=== PATIENT | male | born 1970 | race Caucasian/White ===

== ENCOUNTER → 2016-09-21 | Outpatient (CLI) | payer MEDICARE, BC ==
--- NOTE | 2016-09-21 12:15 | EST ---
DATE OF SERVICE: 09/21/2016 AGE: 46Y SEX: M HT: 63" WT: 210 lbs. Protocol Rajesh: X Other: Stage: III Dur. of Exercise: 6 minutes *Heart Rate Blood Pressure *Rest: 60 Rest: 156/97 * *Max. Achieved: 114 Maximum BP: 180/98 85% PMHR: 146 100% PMHR: 172 *METS: 6.7 INDICATIONS: Chest pain. MEDICATIONS: Mr. Garcia is a 46-year-old gentleman being evaluated for symptoms of chest pain. The patient has a history of hypertension and hypercholesterolemia. Baseline EKG showed sinus rhythm with normal DE interval and QRS duration. Blood pressure at rest is 156/97 with a pulse rate of 60. Patient walked on the Rajesh protocol for about 6 minutes achieving a maximum heart rate of 114 with a blood pressure of 180/98. EKGs taken during and after the exercise did not reveal any significant changes from the baseline. FINAL IMPRESSION: 1. Inconclusive stress test as patient did not achieve 85% of predicted heart rate. 2. The test was stopped because of back pain. 3. Patient did not experience any chest pain. 4. No arrhythmias were detected.
== END | disposition home or self-care (01) ==
LOC: RADNMMAIN 10:47
PROVIDERS: ATTEND Family Medicine
DX: R07.9 Chest pain, unspecified (principal)
CPT/HCPCS: 93017

== ENCOUNTER → 2017-01-09 | Outpatient (CLI) | payer MEDICARE, BC ==
--- NOTE | 2017-01-09 13:10 | CT ---
EXAMINATION TYPE: CT foot LT wo con, CT foot RT wo con DATE OF EXAM: 01/09/2017 12:35 PM COMPARISON: NONE HISTORY: fx CT DLP: 312 mGycm Automated exposure control for dose reduction was used. FINDINGS: There is a comminuted fracture of the base of the right first metatarsal. Much of the metat arsals displaced cranially by approximately 3 cm. There is some overlap between the metatarsal head a nd the medial cuneiform There appears to be a tiny chip fracture off the posterior malleolus which is minimally displaced. There is an Achilles spur arising from the calcaneus. There are degenerative changes in the right first MTP joint. On the left, there is a similar appearance. There is a comminuted intra-articular fracture of the fir st tarsometatarsal joint. There are 3 fragments. There is a distal second metatarsal fracture which i s mildly angulated there is an undisplaced fracture of the proximal second metatarsal. There does not appear to be widening of the Lisfranc joint. Correlation with plain radiographs would BE suggested. There is minimal degenerative change in the left first MTP joint. There is a small Achilles spur pres ent. IMPRESSION: BILATERAL FOOT FRACTURES DESCRIBED.
== END | disposition home or self-care (01) ==
LOC: RADCTMAIN 12:02
PROVIDERS: ATTEND Orthopaedic Surgery Sports Medicine
DX: S92.311A Displaced fracture of first metatarsal bone, right foot, initial encounter for closed fracture (principal); S92.322A Displaced fracture of second metatarsal bone, left foot, initial encounter for closed fracture; S92.312A Displaced fracture of first metatarsal bone, left foot, initial encounter for closed fracture

== ENCOUNTER 2017-01-16 08:42 | Inpatient (IN) | payer MEDICARE, BC ==
[2017-01-11 09:43] VITALS: BMI 40.7
[~2017-01-16 08:42] MED LIST: FAMOTIDINE 20 MG/2 ML VIAL IV PRN; HYDROmorphone 1 MG/ML 1 ML SYRINGE IVP PRN; MIDAZOLAM 2 MG/2 ML VIAL IV PRN; ceFAZolin 2 GM in SODIUM CHLORIDE 0.9% 100 ML IVPB ONE
[2017-01-16] MEDS ORDERED: LIDOCAINE 1% 20 ML VIAL (10MG/ML) FOR IV START INTRADERMA ONE (11:11)
[2017-01-16] MEDS: LACTATED RINGERS 1,000 ML IV SCH ×3 (11:11→21:50)
[2017-01-16] MEDS ORDERED: DEXAMETHASONE SOD PHOS (MDV) 100 MG/10 ML VIAL IVP ONE (11:16)
[2017-01-16] MEDS ORDERED: ONDANSETRON 4 MG/2 ML VIAL IVP ONE (11:17)
[2017-01-16] MEDS ORDERED: fentaNYL (PF) 50 MCG/ML 2 ML AMP ONE (11:43)
[2017-01-16] MEDS ORDERED: HYDROmorphone (PF) 1 MG/ML ONE (11:43)
[2017-01-16] MEDS ORDERED: ePHEDrine 50 MG/ML 1 ML AMP ONE (11:43)
[2017-01-16] MEDS ORDERED: PROPOFOL 10 MG/ML 20 ML VIAL IV ONE (11:43)
[2017-01-16] MEDS ORDERED: LIDOCAINE 1% INJ 10MG/ML (20 ML MDV) ONE (11:43)
[2017-01-16] MEDS ORDERED: KETAMINE 10 MG/ML 20 ML VIAL ONE (11:43)
[2017-01-16] MEDS ORDERED: MIDAZOLAM 2 MG/2 ML VIAL ONE (11:43)
[2017-01-16] MEDS ORDERED: LACTATED RINGERS 1,000 ML IV ONE ×2 (12:30)
--- NOTE | 2017-01-16 14:37 | XR ---
EXAMINATION TYPE: XR foot complete bilateral DATE OF EXAM: 01/16/2017 COMPARISON: NONE HISTORY: Bilateral feet, open reduction internal fixation TECHNIQUE: 47 seconds of fluoroscopy time Images: 11 IMPRESSION: 1. Documentation of fluoroscopy
--- NOTE | 2017-01-16 14:41 | FL ---
EXAMINATION TYPE: FL guidance operating room DATE OF EXAM: 01/16/2017 CLINICAL HISTORY: Bilateral foot fractures TECHNIQUE: Fluoroscopy. COMPARISON: None. FINDINGS: Fluoroscopic guidance was provided during open reduction internal fixation procedure perfo rmed by Dr. Mata on both feet. A total of 47 seconds of fluoroscopic time was utilized during th e procedure. IMPRESSION: As Above.
[2017-01-16] MEDS ORDERED: TEMAZEPAM 15 MG CAP PO PRN (15:06)
[2017-01-16] MEDS ORDERED: HYDROmorphone 1 MG/ML 1 ML SYRINGE IVP PRN ×2 (15:06)
[2017-01-16] MEDS ORDERED: ONDANSETRON 4 MG/2 ML VIAL IVP PRN (15:06)
[2017-01-16] MEDS ORDERED: PROCHLORPERAZINE SUPPOSITORY 25 MG SUPP RECTAL PRN (15:06)
[2017-01-16] MEDS ORDERED: diphenhydrAMINE 25 MG CAP PO PRN (15:06)
[2017-01-16] MEDS ORDERED: SENNOSIDES-DOCUSATE SODIUM 1 EACH TAB PO PRN (15:06)
[2017-01-16] MEDS ORDERED: oxyCODONE-APAP 10-325MG 1 EACH TAB PO PRN (15:10)
[2017-01-16] MEDS ORDERED: LIDOCAINE 2%-EPI 1:100,000 20 ML VIAL INTRAARTIC ONE (15:53)
[2017-01-16] MEDS ORDERED: ROPIVACAINE 5 MG/ML 30 ML VIAL MISCELLANE ONE (15:54)
--- NOTE | 2017-01-16 16:07 | P.ONQ ---
Anesthesiology Proc Note - PNB - Peripheral Nerve Block Performed Left Popliteal Single Time Out Performed: Yes Indication: Acute Post-Operative Pain, Analgesia Specifically requested for management of pain by DrIker: Prince Mata Sedation Type: Awake Preparation: Sterile Prep Catheter: None Needle Size: 50mm (2") Needle Gauge: Other (see comment) (22) Technique: Ultrasound Injectate: Other (see comment) (10cc 0.5% ropivicaine + 10cc 2% lidocaine) Adjunct: Epinephrine (see comment for dilution ratio) (1:200,000) Blood Aspirated: No Pain Paresthesia on Injection Noted: No Resistance on Injection: Normal Events: Uneventful and Well Tolerated
--- NOTE | 2017-01-16 16:10 | P.ONQ ---
Anesthesiology Proc Note - PNB - Peripheral Nerve Block Performed Right Popliteal Single Time Out Performed: Yes Indication: Acute Post-Operative Pain, Analgesia Specifically requested for management of pain by DrIker: Prince Mata Sedation Type: Awake Preparation: Sterile Prep Position: Prone Catheter: None Needle Types: Other (see comment) (22) Needle Size: 100mm (4") Needle Gauge: Other (see comment) (22 ga) Technique: Ultrasound Injectate: Other (see comment) (10cc 0.5% ropivicaine + 10cc 2% lidocaine) Adjunct: Epinephrine (see comment for dilution ratio) (1:200,000) Blood Aspirated: No Pain Paresthesia on Injection Noted: No Resistance on Injection: Normal Events: Uneventful and Well Tolerated
[2017-01-16] MEDS: ceFAZolin 2 GM in SODIUM CHLORIDE 0.9% 100 ML IVPB SCH (16:50)
--- NOTE | 2017-01-16 17:02 | P.CONS ---
History of Present Illness - Chief Complaint Walking difficulty - History of Present Illness I had the op to see patient for inpatient rehab consultation with regard to walking difficulty. Note that he appear to my consultation dashboard. Patient just admitted today with bilateral great toe dislocations at, admitted for and underwent elective bilateral foot surgeries performed by Dr. Mata. PT and OT not prescribed yet. Previous functional sick, as this from patient: 46-year-old left-handed white male who is lives and 2 floor home with .. Is on disability related to back pain apparently a pain patient of mine. Regular doctors Dr. Quach. Patient describes independent with cooking, driving, sitdown shower and gait without device. does the laundry. family history father with hypertension and diabetes. Review of Systems Review of systems: ENT: Denies sneezes or discharge. Eyes: Denies discharge or photophobia. Cardiac: Denies chest pain or palpitation. Pulmonary: Denies cough or shortness of breath. Gastrointestinal: Denies nausea, emesis, constipation, diarrhea. Genitourinary: Denies discharge or frequency. Musculoskeletal: Chronic back pain which may be in fact more than the bilateral lateral foot pain. Neurologic: Denies motor or sensory change. Endocrine: Denies shakes or sweats. Oncology: Denies cancers. Dermatologic: Denies rash, itching, pruritus. ALLERGY/immunology: Denies sneezes, rashes. Past Medical History Past Medical History: GERD/Reflux, Hyperlipidemia, Hypertension, Musculoskeletal Disorder, Osteoarthritis (OA) Additional Past Medical History / Comment(s): "BAD BACK". "LT KNEE BONE ON BONE. " KIKA 1ST TMT DISLOCATION, METATARSAL FX KIKA FEET. SL EDEMA RT LEG. USES W/ C. History of Any Multi-Drug Resistant Organisms: None Reported Past Surgical History: Appendectomy, Back Surgery, Orthopedic Surgery, Tonsillectomy Additional Past Surgical History / Comment(s): LT KNEE. Past Anesthesia/Blood Transfusion Reactions: No Reported Reaction Past Psychological History: Anxiety, Depression, Panic Disorder Smoking Status: Never smoker Past Alcohol Use History: None Reported Additional Past Alcohol Use History / Comment(s): CHEWED X2 YEARS, 1 CAN PER DAY , QUIT 2014. Past Drug Use History: Marijuana Additional Drug Use History / Comment(s): OCC USE - INSTRUCTED TO HOLD 24 HR PREOP - Past Family History Mother Family Medical History: No Reported History Medications and Allergies Home Medications Medication Instructions Recorded Confirmed Type Aspirin [Children's Aspirin] 81 mg PO DAILY 01/11/17 01/16/17 History Baclofen [Lioresal] 20 mg PO QID 01/11/17 01/16/17 History Divalproex [Depakote] 500 mg PO DAILY 01/11/17 01/16/17 History FLUoxetine HCL [PROzac] 40 mg PO DAILY 01/11/17 01/16/17 History Ferrous Sulfate [Feosol] 325 mg PO DAILY 01/11/17 01/16/17 History Fish Oil/Dha/Epa [Fish Oil 1,200 1 cap PO DAILY 01/11/17 01/16/17 History mg Fish Oil] Gabapentin [Neurontin] 600 mg PO TID 01/11/17 01/16/17 History Ibuprofen [Motrin] 800 mg PO TID 01/11/17 01/16/17 History Lisinopril-Hctz 20-25 mg 1 tab PO DAILY 01/11/17 01/16/17 History [Zestoretic 20-25] Magnesium Oxide [Magnesium] 500 mg PO BID 01/11/17 01/16/17 History Metoprolol Tartrate [Lopressor] 100 mg PO BID 01/11/17 01/16/17 History Niacin 500 mg PO BID 01/11/17 01/16/17 History QUEtiapine FUMARATE [Seroquel] 50 mg PO HS 01/11/17 01/16/17 History Ranitidine HCl [Zantac] 150 mg PO BID 01/11/17 01/16/17 History oxyCODONE-APAP 10-325MG [Percocet 1 tab PO Q6HR 01/11/17 01/16/17 History 10-325 mg] Allergies Allergy/AdvReac Type Severity Reaction Status Date / Time No Known Allergies Allergy Verified 01/16/17 11:07 Physical Exam Vitals: Vital Signs Temp Pulse Resp BP Pulse Ox 01/16/17 16:43 97.8 F 68 18 153/90 99 01/16/17 15:45 60 18 125/69 95 01/16/17 15:30 64 18 88/41 95 01/16/17 15:15 57 L 18 108/67 98 01/16/17 15:00 97.1 F L 55 L 18 99/59 95 01/16/17 11:04 97.9 F 54 L 12 126/73 98 Intake and Output 01/16/17 01/16/17 01/16/17 06:59 14:59 22:59 Intake Total 1999 300 Output Total 10 Balance 1989 300 Intake: IV 1999 300 Output: Estimated Blood Loss 10 Skin: Good color, texture, turgor. General: Medium build and comfortable appearance. Head: Normocephalic, atraumatic. Eyes: Symmetric. Pupils equal round. Ears: Symmetric. Hearing within normal limits. Mouth: Clear. Neck: Supple. Carotid without bruit. Cardiac: Regular rate and rhythm. Lungs: Clear anteriorly and posteriorly. Abdomen: Soft active nontender. Extremities: Normal tone. Feet are in a air boots and dressed with Tom wraps. Neurological: Mental status: Alert, cooperative, pleasant. Cranial nerves: Symmetric facial tone and trapezius. Motor: Able to elevate legs off of bed. Sensation: Intact throughout. And this includes feet area DTRs: Symmetric and equal throughout. Mobility: Did not attempt to sit or stand patient just immediately postoperative. Results CBC & Chem 7: 01/16/17 11:10 Assessment and Plan Plan: Impression: 1. Walking difficulty. 2. Status post bilateral pedal surgeries. 3. Chronic back pain. 4. Marianne arthritis. 5. Hypertension. 6. Dyslipidemia. Comments and plan: Patient did mention and appears to be effective pain patient of mine the. Note that we did discuss an opiate agreement. Myopia agreements to have perioperative pain manageable pole and would defer pain management yourself. In fact patient suggests that you're planning perioperative pain management a perhaps up to 3 months. Of course return to me for chronic pain management after your treatment is complete. With regard to therapies, would defer to your judgment with regard to the initiation of these. We will follow with yourself though.
[2017-01-16] MEDS: HYDROmorphone 1 MG/ML 1 ML SYRINGE IVP PRN ×2 (17:07→21:38)
[2017-01-16] MEDS: oxyCODONE-APAP 10-325MG 1 EACH TAB PO PRN (18:17)
[2017-01-16] MEDS: METOPROLOL TARTRATE 50 MG TAB PO SCH (21:38)
[2017-01-16] MEDS: CALCIUM CARBONATE 500 MG CHEWABLE PO SCH (21:40)
[2017-01-16] MEDS: GABAPENTIN 300 MG CAP PO SCH (21:40)
[2017-01-16] MEDS: QUEtiapine 50 MG TAB PO SCH (21:40)
[2017-01-17] MEDS: ceFAZolin 2 GM in SODIUM CHLORIDE 0.9% 100 ML IVPB SCH (00:16)
[2017-01-17] MEDS: oxyCODONE-APAP 10-325MG 1 EACH TAB PO PRN ×4 (00:16→18:51)
[2017-01-17] MEDS: LACTATED RINGERS 1,000 ML IV SCH ×3 (02:24→15:01)
[2017-01-17] MEDS: HYDROmorphone 1 MG/ML 1 ML SYRINGE IVP PRN ×3 (03:02→14:55)
[2017-01-17] MEDS: hydrOXYzine PAMOATE 25 MG CAP PO PRN ×3 (06:16→18:51)
[2017-01-17] MEDS: ENOXAPARIN 40 MG/0.4 ML SYRINGE SQ SCH (07:20)
[2017-01-17] MEDS: METOPROLOL TARTRATE 50 MG TAB PO SCH ×2 (07:20→22:10)
[2017-01-17] MEDS: GABAPENTIN 300 MG CAP PO SCH ×3 (07:21→21:06)
[2017-01-17] MEDS: CALCIUM CARBONATE 500 MG CHEWABLE PO SCH ×3 (07:21→21:06)
[2017-01-17 08:14] LABS: Basophils % (A) 0 %; CH 31.5; CHCM 36.6; Eosinophils % (A) 0 %; HCT 31.2 % (39.0-53.0); HDW 2.34; HGB 11.3 gm/dL (13.0-17.5); Luc # (Auto) 0.25; Luc % (Auto) 3; Lymphocytes # (A) 1.2 k/uL (1.0-4.8); Lymphocytes % (A) 13 %; MCH 31.3 pg (25.0-35.0); MCHC 36.2 g/dL (31.0-37.0); MCV 86.3 fL (80.0-100.0); Mean Platelet Volume 7.1; Monocytes % (A) 10 %; Neutrophils # (A) 6.9 k/uL (1.3-7.7); Neutrophils % (A) 74 %; RBC 3.62 m/uL (4.30-5.90); RDW 12.7 % (11.5-15.5); WBC 9.3 k/uL (3.8-10.6); WBC (Perox) 9.89
[2017-01-17 08:25] VITALS: RESP 16
--- NOTE | 2017-01-17 09:24 | P.PN ---
Subjective Principal diagnosis: Status post ORIF TMT dislocation and fractures bilateral Patient is postop day #1 from ORIF of bilateral first TMT fracture dislocations in addition to closed reduction and pinning of a left second metatarsal fracture. His pain control appears to be adequate this morning. He has no new complaints. He denies numbness or tingling. He is denying calf pain. Review of systems is negative for fever, chills, chest pain, shortness breath, nausea, vomiting, dizziness, headaches, slurred speech or other. Objective - Vital Signs Vital signs: Vital Signs Temp 97.5 F L 01/17/17 07:00 Pulse 65 01/17/17 07:00 Resp 16 01/17/17 07:00 BP 141/77 01/17/17 07:00 Pulse Ox 96 01/17/17 07:00 Intake & Output 01/16/17 01/17/17 01/17/17 18:59 06:59 18:59 Intake Total 2300 740 Output Total 10 2150 Balance 2290 -1410 Weight 104.326 kg Intake: IV 2300 500 Lactated Ringers 1,000 ml 500 @ 100 mls/hr IV .Q10H JOSIE Rx#:[id number] Oral 240 Output: Urine 2150 Estimated Blood Loss 10 Other: Voiding Method Urinal - Exam Inspection of lower extremities shows well-padded bulky splints intact. There is no evidence of active bleeding or drainage. He has motor and sensation distally in all digits. There is less than 2 second capillary refill. - Constitutional General appearance: Present: no acute distress - Psychiatric Psychiatric: Present: A&O x's 3, appropriate affect, intact judgment & insight - Labs CBC & Chem 7: 01/17/17 07:52 01/16/17 11:10 Labs: Abnormal Lab Results - Last 24 Hours (Table) 01/17/17 Range/Units 07:52 RBC 3.62 L (4.30-5.90) m/uL Hgb 11.3 L (13.0-17.5) gm/dL Hct 31.2 L (39.0-53.0) % Assessment and Plan (1) Dislocation of metatarsophalangeal joint of great toe Narrative/Plan: He'll continue with routine postop orthopedic protocol including pain management , wound care, physical therapy where he is nonweightbearing with both lower extremities, DVT prophylaxis and medical management. Expect that he will discharge to home tomorrow 01/18/2017. Status: Acute (2) Dislocation of great toe, left, open Status: Acute Time with Patient: Less than 30
--- NOTE | 2017-01-17 09:25 | OP ---
DATE OF SERVICE: 01/16/2017 SURGEON: Prince Mata MD CABIN OUTFITTER: Frank Mahan PA-C PREOPERATIVE DIAGNOSES: 1. Right fracture-dislocation of the first tarsometatarsal joint with a comminuted first metatarsal base fracture. 2. Left first tarsometatarsal fracture-dislocation with a comminuted intra-articular first metatarsal base fracture. 3. Left displaced second metatarsal neck fracture. 4. Chronic pain currently on Percocet 10/325 four tablets a day. 5. Chronic low back pain. POSTOPERATIVE DIAGNOSES: 1. Right fracture-dislocation of the first tarsometatarsal joint with a comminuted first metatarsal base fracture. 2. Left first tarsometatarsal fracture-dislocation with a comminuted intra-articular first metatarsal base fracture. 3. Left displaced second metatarsal neck fracture. 4. Chronic pain currently on Percocet 10/325 four tablets a day. 5. Chronic low back pain. OPERATION: 1. Open reduction of right first tarsometatarsal dislocation. 2. Open reduction of the left first tarsal metatarsal dislocation. 3. Open reduction and internal fixation of right first tarsometatarsal dislocation and first metatarsal base fracture. 4. Open reduction and internal fixation of left first tarsometatarsal dislocation and first metatarsal base fracture. 5. Percutaneous reduction and pinning of left second metatarsal neck fracture. ANESTHESIA: Spinal plus bilateral popliteal and saphenous nerve blocks. ESTIMATED BLOOD LOSS: Less than 20 mL. SPECIMENS REMOVED: COMPLICATIONS: None. FLUIDS: See anesthesia note. OPERATIVE FINDINGS: INDICATIONS: The patient is a 46-year-old male with a medical history significant for chronic low back pain for which he takes 4 Percocet 10/325 a day. Two weeks ago the patient sustained a fall resulting in isolated injuries to both of his feet. He was seen in the emergency department where x-rays showed fracture-dislocations of the first tarsometatarsal joint complex bilaterally. He was seen in the office by my partner Dr. Heriberto Bowman. The patient was placed in boots and a CT scan was obtained. I saw the patient in the office last . Based on the patient's injury, my recommendation was to perform open reduction and internal fixation with dorsal bridge plating. We also discussed performing primary fusions of the first tarsometatarsal joint complex, but due to the comminution, I recommended a bridge fixation. We discussed the potential risks and complications of surgery, including, but not limited to, risk of anesthesia, risk of superficial infection, risk of deep infection, risk of delayed wound healing, risk of wound necrosis, risk of fracture nonunion, risk of fracture malunion, risk of postoperative displacement, risk of chronic pain, risk of chronic swelling, risk of symptomatic hardware, risk of broken hardware, risk of need for further surgery, risk of dissatisfaction with surgery, risk of difficulty ambulating, followup surgery, risk of need for assistive device to ambulate following surgery, risk of postoperative medical problems including acute coronary event, pulmonary issues, DVT, PE, urinary tract infection, pneumonia and possibly . The patient voiced his understanding that these are the most common complications but other less common complications are possible. He provided his verbal and written consent to go forward with surgery. DESCRIPTION OF PROCEDURE: The patient was identified in preoperative holding and both the right and left extremities were marked with my initials. I reviewed my proposed surgery with the patient and his . Once all of their questions were answered, he was brought back to the operating room. He was positioned on a standard operating room table and a spinal anesthetic was administered by Anesthesia. Once it had taken effect, he was positioned on the operating room table. All bony prominences were well padded. Tourniquets were applied to both the right and left thigh. Both legs were then prepped and draped in the standard sterile fashion. Prior to starting surgery, a timeout was performed identifying the correct patient, operative extremity and procedure. I then proceeded to start with the right side. I outlined a dorsal incision centered over the first tarsometatarsal joint complex in the one to intermetatarsal space. Skin incision was made with a 15 blade scalpel and dissection was carried down carefully through subcutaneous tissue. Superficial veins were controlled with electrocautery. A superficial nerve was identified in the proximal aspect of the incision, dissected and carefully retracted. The EHL tendon sheath was incised longitudinally in line with the skin incision and carefully retracted. I then incised the periosteum over the first tarsometatarsal joint complex. After the first tarsometatarsal joint complex was elevated and the joint was circumferentially exposed, there was an obvious dislocation. The dorsal medial aspect of the first metatarsal base was completely dislocated. There were several loose osteochondral fragments which were debrided. I was unable to reduce the joint with manual traction so I placed terminally threaded K-wires in the distal aspect of the first metatarsal and in the proximal aspect of the medial cuneiform. A distracting device was placed over the K wires and gentle distraction was applied. With gentle distraction, I was able to reduce the large articular fragment in place but it would sublux as soon as digital pressure was removed. I then placed a large xjeqa-yc-qmetv reduction clamp with one aurea over the dorsomedial aspect of the first metatarsal base fragment and the second time was placed through a stab incision in the lateral foot down to bone. With the reduction clamp fully engaged, the fracture reduction held. On visual inspection, the joint appeared to be anatomically reduced. I then placed two 0.0625 K-wires to the periphery of the joint to hold the reduction. The distraction device was then removed. I then elected to use a long revision first MTP fusion joint from the [facility] Ortholoc set. The plate was contoured over the first tarsometatarsal joint. The plate was held down against the bone with olive-tip K-wires with one in the medial cuneiform and one in the first metatarsal shaft. I then proceeded to place a nonlocking 3.5 mm cortical screw in the proximal aspect of the plate in the medial cuneiform to bring the plate down to bone and a second 3.5 mm fully threaded nonlocking screw in the distal aspect of the plate to bring it down to bone. The locking holes of the plate were then filled with a fully threaded 3.5 mm locking screws. The proximal locking screws and medial cuneiform were directed to gain purchase in the middle cuneiform as well to help get extra points of fixation. I then placed locking screws in the distal aspect of the first metatarsal. At this point clinically the joint appeared to be anatomically reduced with no step-offs. C-arm fluoroscopy was brought in and the final fluoro shots were taken showing adequate reduction of the first tarsometatarsal joint complex in adequate position of the hardware. The wound was then copiously irrigated. The periosteum over the tarsometatarsal joint complex was closed with a running 2-0 Vicryl stitch. The deep subcutaneous tissue was reapproximated using 3-0 Monocryl. The skin and stab incisions were closed with 3-0 nylon horizontal mattress stitches. A sterile dressing consisting of Betadine soaked Adaptic, 4 x 4 and Webril was applied over the right foot and the tourniquet was let down. Attention was then turned to the left foot. C-arm fluoroscopy was brought in and I marked out a longitudinal incision centered over the tarsometatarsal joint complex in the 1-2 intermetatarsal space. The leg was elevated, exsanguinated with an Esmarch bandage and the tourniquet was inflated to 250 mmHg. I made a skin incision with a 15 blade scalpel and dissected carefully down through the subcutaneous tissue. Superficial veins were controlled with electrocautery. A crossing superficial sensory branch was identified and carefully retracted. The EHL tendon sheath was incised longitudinally in line with the skin incision. I then incised the joint capsule over the first tarsometatarsal joint complex. On inspection of the joint, once it was circumferentially exposed, there was a subluxation of the first metatarsal dorsally. I was able to manually reduce the joint with digital pressure over the first metatarsal base. To hold the reduction a wcutn-ba-xicaz reduction clamp was placed with one aurea over the first metatarsal base and the second time was placed through a stab incision over the lateral cuneiform. Once the joint was reduced, I placed two 0.0625 K-wires at the periphery of the joint. I was able to remove the bjmim-ko-gpxyy reduction clamp and the reduction held. I verified reduction with C-arm fluoroscopy. I then used a precontoured first metatarsal plate from the [employer] Ortholoc set. The plate was contoured over the dorsal aspect of the first tarsometatarsal joint. The 3.5 mm nonlocking screws were then placed in the medial cuneiform and first metatarsal bring the plate down to bone. I then filled the remaining screws with locking 3.5 mm screws. After the plate had been applied, the joint appeared to be anatomically reduced. The K wires were removed and the joint maintained its reduction. C-arm fluoroscopy was brought in and the joint appeared to be anatomically reduced with no evidence of subluxation and the hardware was in acceptable position. Attention was then turned to the left second metatarsal neck fracture. Due to the amount of angulation. I elected to perform a percutaneous reduction and pinning. A stab incision was made in the first web space. A dental pick was then used and the second metatarsal head was reduced. Once it was reduced, a 0.0625 K-wire was placed under the base of the second toe into the metatarsal head and driven retrograde across the fracture site up into the second metatarsal shaft. Fluoroscopy was used to verify reduction of the fracture and position of the hardware. On all 3 views, the wire appeared to be within the second metatarsal. At this point, all wounds on the left foot were copiously irrigated. The periosteum over the first tarsometatarsal joint was closed with a running 2-0 Vicryl stitch. The deep subQ was reapproximated using 3-0 Monocryl and the skin was closed using 3-0 nylon horizontal mattress stitches. Brown 1/4 inch stretchy Steri-Strips were applied between the stitches. A sterile dressing consisting of Betadine soaked Adaptic, 4 x 4 and Webril was applied. A 4 x 4 was placed over the pin in the second metatarsal head and a cap was placed over the cut K-wire. I verified with the r and d lab technician that all instruments, sponge and sharp counts were correct. The drapes were then taken down and bulky Vargas-type splints were applied to both lower extremities. The left tourniquet was let down. The patient was then transferred from the operating room table to the [facility] and brought to PAC after tolerating the procedure well. In PAC U Anesthesia placed popliteal and saphenous nerve blocks in the bilateral lower extremities. Frank Mahan was required as a skilled environmental engineering assistant for patient positioning, retraction, surgical approach, fixation of fracture, application of hardware, wound closure and application of splints. PLAN: The patient is going to be admitted overnight for IV antibiotics and pain control. He will be started on Lovenox 40 mg daily for DVT prophylaxis. We will also consulted Physical Therapy, Occupational Therapy and Social Work for assistance in discharge planning since the patient is going to be nonweightbearing on both lower extremities, anticipate he may need a referral to some type of rehab facility.
[2017-01-17] MEDS: CHOLECALCIFEROL 1,000 UNIT TAB PO SCH (11:41)
[2017-01-17] MEDS ORDERED: ERGOCALCIFEROL 50,000 UNIT CAP PO SCH (20:00)
--- NOTE | 2017-01-17 20:28 | XR ---
EXAMINATION TYPE: XR chest 1V portable DATE OF EXAM: 01/17/2017 COMPARISON: 12/10/2009 HISTORY: Chest pain. TECHNIQUE: Single frontal view of the chest is obtained. FINDINGS: There is no focal air space opacity, pleural effusion, or pneumothorax seen. The cardiac silhouette size is prominent. The osseous structures are intact. IMPRESSION: No acute cardiopulmonary process.
[2017-01-17] MEDS: QUEtiapine 50 MG TAB PO SCH (21:06)
[2017-01-18] MEDS: LACTATED RINGERS 1,000 ML IV SCH ×3 (00:56→16:31)
[2017-01-18] MEDS: oxyCODONE-APAP 10-325MG 1 EACH TAB PO PRN ×4 (02:10→21:22)
[2017-01-18] MEDS: GABAPENTIN 300 MG CAP PO SCH ×3 (08:09→21:22)
[2017-01-18] MEDS: METOPROLOL TARTRATE 50 MG TAB PO SCH ×2 (08:10→21:21)
[2017-01-18] MEDS: DIVALPROEX 500 MG TABLET.DR PO SCH (08:10)
[2017-01-18] MEDS: hydrOXYzine PAMOATE 25 MG CAP PO PRN ×3 (08:10→22:03)
[2017-01-18] MEDS: FERROUS SULFATE 325 MG TAB PO SCH (08:10)
[2017-01-18] MEDS: FLUoxetine HCL 20 MG CAP PO SCH (08:11)
[2017-01-18] MEDS: ENOXAPARIN 40 MG/0.4 ML SYRINGE SQ SCH (08:11)
[2017-01-18] MEDS: CALCIUM CARBONATE 500 MG CHEWABLE PO SCH ×3 (08:11→21:22)
[2017-01-18 08:21] LABS: Basophils % (A) 0 %; CH 31.4; CHCM 35.5; Eosinophils % (A) 0 %; HCT 31.7 % (39.0-53.0); HDW 2.26; HGB 11.4 gm/dL (13.0-17.5); Luc # (Auto) 0.24; Luc % (Auto) 3; Lymphocytes % (A) 11 %; MCH 31.9 pg (25.0-35.0); MCHC 35.9 g/dL (31.0-37.0); MCV 88.8 fL (80.0-100.0); Monocytes # (A) 0.9 k/uL (0-1.0); Monocytes % (A) 10 %; Neutrophils # (A) 6.7 k/uL (1.3-7.7); Neutrophils % (A) 76 %; RBC 3.56 m/uL (4.30-5.90); RDW 12.6 % (11.5-15.5); WBC 8.8 k/uL (3.8-10.6); WBC (Perox) 9.06
[2017-01-18 08:25] LABS: ALT 27 U/L (21-72); AST 18 U/L (17-59); Alkaline Phosphatase 81 U/L (38-126); Anion Gap 13 mmol/L; Blood Urea Nitrogen 9 mg/dL (9-20); Calcium 9.7 mg/dL (8.4-10.2); Carbon Dioxide 28 mmol/L (22-30); Chloride 89 mmol/L (98-107); Glucose 115 mg/dL (74-99); Non-African American GFR(MDRD) >60 (>60 ml/min/1.73 sqM); Potassium 3.4 mmol/L (3.5-5.1); Sodium 130 mmol/L (137-145); Total Bilirubin 0.8 mg/dL (0.2-1.3); Total Protein 7.2 g/dL (6.3-8.2)
[2017-01-18] MEDS: CHOLECALCIFEROL 1,000 UNIT TAB PO SCH (12:11)
[2017-01-18] MEDS: LISINOPRIL 10 MG TAB PO SCH (12:12)
--- NOTE | 2017-01-18 12:17 | P.PN ---
Subjective Principal diagnosis: Status post ORIF TMT dislocation and fractures bilateral Patient is postop day #2 from ORIF of bilateral first TMT fracture dislocations in addition to closed reduction and pinning of a left second metatarsal fracture. His pain control appears to be adequate this morning. He has no new complaints. He denies numbness or tingling. He is denying calf pain. Review of systems is negative for fever, chills, chest pain, shortness breath, nausea, vomiting, dizziness, headaches, slurred speech or other. Objective - Vital Signs Vital signs: Vital Signs Temp 97.8 F 01/18/17 07:00 Pulse 66 01/18/17 07:00 Resp 16 01/18/17 07:00 BP 193/94 01/18/17 12:14 Pulse Ox 98 01/18/17 07:00 Intake & Output 01/17/17 01/18/17 01/18/17 18:59 06:59 18:59 Intake Total 1200 200 Output Total 5600 1950 Balance -4400 -1750 Weight 104.326 kg Intake: Intake, IV Titration 400 Amount Lactated Ringers 1,000 ml 400 @ 20 mls/hr IV .Q24H [facility] Rx#:[id number] Oral 800 200 Output: Urine 5600 1950 Other: Voiding Method Urinal Urinal - Exam Inspection of lower extremities shows well-padded bulky splints intact. There is no evidence of active bleeding or drainage. He has motor and sensation distally in all digits. There is less than 2 second capillary refill. - Constitutional General appearance: Present: no acute distress - Psychiatric Psychiatric: Present: A&O x's 3, appropriate affect, intact judgment & insight - Labs CBC & Chem 7: 01/18/17 07:37 01/18/17 07:37 Labs: Abnormal Lab Results - Last 24 Hours (Table) 01/16/17 01/18/17 01/18/17 Range/Units 11:10 07:37 07:37 RBC 3.56 L (4.30-5.90) m/uL Hgb 11.4 L (13.0-17.5) gm/dL Hct 31.7 L (39.0-53.0) % Sodium 130 L (137-145) mmol/L Potassium 3.4 L (3.5-5.1) mmol/L Chloride 89 L (98-107) mmol/L Glucose 115 H (74-99) mg/dL Vitamin D 25-Hydroxy 22.0 L (30.0-100.0) ng/mL Assessment and Plan (1) Dislocation of metatarsophalangeal joint of great toe Narrative/Plan: He'll continue with routine postop orthopedic protocol including pain management , wound care, physical therapy where he is nonweightbearing with both lower extremities, DVT prophylaxis and medical management. Plan is for him to transfer to an extended care facility for rehab tomorrow, 01/19/2017. Status: Acute (2) Dislocation of great toe, left, open Status: Acute Time with Patient: Less than 30
[2017-01-18] MEDS ORDERED: POTASSIUM CHLORIDE ER 20 MEQ TAB.ER PO STA (15:28)
--- NOTE | 2017-01-18 17:17 | CONS ---
DATE OF CONSULTATION: REASON FOR CONSULTATION: Hyponatremia and recommendations regarding antihypertensive medications. Patient is postoperative day 2 ORIF and bilateral TMT fracture and dislocations and metatarsal fracture. Patient denied any fever or chills. Patient denied any nausea, vomiting, abdominal pain. Patient takes hydrochlorothiazide and lisinopril. Patient did have elevated blood pressure today. Patient was hyponatremic, probably related to hydrochlorothiazide. Patient did pass gas. REVIEW OF SYSTEMS: CONSTITUTIONAL: No fever, no malaise, no fatigue. HEENT: No recent visual problems or hearing problems. Denied any sore throat. CARDIOVASCULAR: No chest pain, orthopnea, PND, no palpitations, no syncope. PULMONARY: No shortness of breath, no cough, no hemoptysis. GASTROINTESTINAL: No diarrhea, no nausea, no vomiting, no abdominal pain. Normoactive bowel sounds. NEUROLOGICAL: No headaches, no weakness, no numbness. HEMATOLOGICAL: Denies any bleeding or petechiae. GENITOURINARY: Denies any burning micturition, frequency, or urgency. MUSCULOSKELETAL/RHEUMATOLOGICAL: Denies any joint pain, swelling, or any muscle pain. ENDOCRINE: Denies any polyuria or polydipsia. The rest of the 14 point review of systems is negative. Past medical history is significant for: 1. Gastroesophageal reflux disease. 2. Hyperlipidemia. 3. Hypertension. 4. Osteoarthritis. 5. Appendectomy. 6. Back surgery. 7. Orthopedic surgery. 8. Tonsillectomy in the past. 9. Patient does have depression as well. SOCIAL HISTORY: Patient chews tobacco; used to chew one can per day; quit in 2014. Occasional marijuana use. Denied any alcohol abuse. FAMILY HISTORY: Significant for hypertension. PHYSICAL EXAMINATION: VITAL SIGNS: Temperature 98.4, pulse of 74, respiratory rate of 16, blood pressure 174/90. Saturating at 98% on room air. GENERAL: The patient is alert and oriented x3, not in any acute distress. Well developed, well nourished. HEENT: Pupils are round and equally reacting to light. EOMI. No scleral icterus. No conjunctival pallor. Normocephalic, atraumatic. No pharyngeal erythema. No thyromegaly. CARDIOVASCULAR: S1 and S2 present. No murmurs, rubs, or gallops. PULMONARY: Chest is clear to auscultation, no wheezing or crackles. ABDOMEN: Soft, nontender, nondistended, normoactive bowel sounds. No palpable organomegaly. MUSCULOSKELETAL: Deferred to Orthopedic Surgery. EXTREMITIES: No cyanosis, clubbing, or pedal edema. NEUROLOGICAL: Gross neurological examination did not reveal any focal deficits. SKIN: No rashes. ASSESSMENT AND PLAN: 1. Hyponatremia secondary to hydrochlorothiazide. Patient is on lactated Ringer's, which is appropriate at this point of time. Potassium will be supplemented. Hydrochlorothiazide combination will be discontinued. Patient can be discharged on lisinopril. I will take care of the discharge medication reconciliation. 2. Hypokalemia secondary to hydrochlorothiazide again, which will be held. 3. Dislocation of metatarsal joint of the great toe and dislocation of the great toe. Patient underwent surgical correction ORIF. 4. Hyperlipidemia. 5. Peripheral neuropathy. 6. Gastroesophageal reflux disease, for which his home medications can be continued. Thank you for letting me participate in this patient's care. Will take care of the discharge medication reconciliation, follow the patient on an as-needed basis. Thank you for letting me participate in this patient's care.
[2017-01-18] MEDS: QUEtiapine 50 MG TAB PO SCH (21:22)
[2017-01-19] MEDS: LACTATED RINGERS 1,000 ML IV SCH ×2 (00:49→12:15)
[2017-01-19] MEDS: oxyCODONE-APAP 10-325MG 1 EACH TAB PO PRN ×2 (03:52→11:15)
[2017-01-19] MEDS: hydrOXYzine PAMOATE 25 MG CAP PO PRN (03:53)
[2017-01-19] MEDS: LISINOPRIL 10 MG TAB PO SCH (07:29)
[2017-01-19] MEDS: METOPROLOL TARTRATE 50 MG TAB PO SCH (07:30)
[2017-01-19 07:51] VITALS: TEMP 97.3
[2017-01-19] MEDS: CALCIUM CARBONATE 500 MG CHEWABLE PO SCH (07:51)
[2017-01-19] MEDS: FLUoxetine HCL 20 MG CAP PO SCH (07:51)
[2017-01-19] MEDS: ENOXAPARIN 40 MG/0.4 ML SYRINGE SQ SCH (07:51)
[2017-01-19] MEDS: FERROUS SULFATE 325 MG TAB PO SCH (07:52)
[2017-01-19] MEDS: GABAPENTIN 300 MG CAP PO SCH (07:52)
[2017-01-19] MEDS: DIVALPROEX 500 MG TABLET.DR PO SCH (07:52)
[2017-01-19 08:03] LABS: Anion Gap 10 mmol/L; Blood Urea Nitrogen 8 mg/dL (9-20); Calcium 9.8 mg/dL (8.4-10.2); Carbon Dioxide 30 mmol/L (22-30); Chloride 88 mmol/L (98-107); Glucose 118 mg/dL (74-99); Non-African American GFR(MDRD) >60 (>60 ml/min/1.73 sqM); Potassium 3.7 mmol/L (3.5-5.1); Sodium 128 mmol/L (137-145)
[2017-01-19] MEDS ORDERED: LISINOPRIL 10 MG TAB PO STA (10:12)
[2017-01-19 10:35] VITALS: BP 180/99; PULSE 72
--- NOTE | 2017-01-19 10:57 | P.DS ---
Providers Date of admission: 01/16/17 10:17 Expected date of discharge: 01/19/17 Attending physician: Prince Mata Consults: 01/16/17 15:23 Consult Physician Routine Consulting Provider: Mahesh Quach Consult Reason/Comments: post op medical management Do you want consulting provider notified?: Yes 01/17/17 21:00 Consult Physician Stat Consulting Provider: Arsen Goodman Consult Reason/Comments: post op medical managment Do you want consulting provider notified?: Already Contacted Primary care physician: Mahesh Quach - Discharge Diagnosis(es) (1) Dislocation of metatarsophalangeal joint of great toe Current Visit: Yes Status: Acute Priority: Medium (2) Dislocation of great toe, left, open Current Visit: No Status: Acute Priority: Medium Hospital Course: This is a 46-year-old male admitted with bilateral tarsal metatarsal joint fracture dislocations. He underwent open reduction internal fixation of bilateral TMT joints of the feet. The patient is doing well postoperatively. He remains and bilateral short leg splints. He is nonweightbearing. He is awaiting transfer to inpatient rehab today. Patient is transferred to inpatient rehab on 01/19/2017. He is to continue nonweightbearing to the lower extremities. He is bed to chair transfer only. Please see med rec for accurate list of home medications. Plan - Discharge Summary New Discharge Prescriptions: New Docusate [Colace] 100 mg PO BID #60 capsule oxyCODONE-APAP 10-325MG [Percocet 10-325 mg] 1 tab PO Q6HR PRN #70 tab PRN Reason: Pain Enoxaparin [Lovenox] 40 mg SQ DAILY #28 syringe Ergocalciferol (Vitamin D2) [Vitamin D2] 50,000 unit PO DIRECTED #30 capsule Lisinopril [Prinivil] 20 mg PO DAILY #1 tablet Discontinued Lisinopril-Hctz 20-25 mg [Zestoretic 20-25] 1 tab PO DAILY No Action Magnesium Oxide [Magnesium] 500 mg PO BID Fish Oil/Dha/Epa [Fish Oil 1,200 mg Fish Oil] 1 cap PO DAILY Ferrous Sulfate [Feosol] 325 mg PO DAILY Aspirin [Children's Aspirin] 81 mg PO DAILY Ranitidine HCl [Zantac] 150 mg PO BID QUEtiapine FUMARATE [Seroquel] 50 mg PO HS Gabapentin [Neurontin] 600 mg PO TID FLUoxetine HCL [PROzac] 40 mg PO DAILY oxyCODONE-APAP 10-325MG [Percocet 10-325 mg] 1 tab PO Q6HR Metoprolol Tartrate [Lopressor] 100 mg PO BID Ibuprofen [Motrin] 800 mg PO TID Divalproex [Depakote] 500 mg PO DAILY Baclofen [Lioresal] 20 mg PO QID Niacin 500 mg PO BID Discharge Medication List Aspirin [Children's Aspirin] 81 mg PO DAILY 01/11/17 [History] Baclofen [Lioresal] 20 mg PO QID 01/11/17 [History] Divalproex [Depakote] 500 mg PO DAILY 01/11/17 [History] FLUoxetine HCL [PROzac] 40 mg PO DAILY 01/11/17 [History] Ferrous Sulfate [Feosol] 325 mg PO DAILY 01/11/17 [History] Fish Oil/Dha/Epa [Fish Oil 1,200 mg Fish Oil] 1 cap PO DAILY 01/11/17 [History] Gabapentin [Neurontin] 600 mg PO TID 01/11/17 [History] Ibuprofen [Motrin] 800 mg PO TID 01/11/17 [History] Magnesium Oxide [Magnesium] 500 mg PO BID 01/11/17 [History] Metoprolol Tartrate [Lopressor] 100 mg PO BID 01/11/17 [History] Niacin 500 mg PO BID 01/11/17 [History] QUEtiapine FUMARATE [Seroquel] 50 mg PO HS 01/11/17 [History] Ranitidine HCl [Zantac] 150 mg PO BID 01/11/17 [History] oxyCODONE-APAP 10-325MG [Percocet 10-325 mg] 1 tab PO Q6HR 01/11/17 [History] Docusate [Colace] 100 mg PO BID #60 capsule 01/18/17 [Rx] Enoxaparin [Lovenox] 40 mg SQ DAILY #28 syringe 01/18/17 [Rx] Ergocalciferol (Vitamin D2) [Vitamin D2] 50,000 unit PO DIRECTED #30 capsule 01/18/17 [Rx] Lisinopril [Prinivil] 20 mg PO DAILY #1 tablet 01/18/17 [Rx] oxyCODONE-APAP 10-325MG [Percocet 10-325 mg] 1 tab PO Q6HR PRN #70 tab 01/18/17 [Rx] Follow up Appointment(s)/Referral(s): Prince Mata MD [Medical Doctor] - 10 Days Patient Instructions/Handouts: Pain Management After Surgery (DC), Acute Wound Care (DC) Activity/Diet/Wound Care/Special Instructions: Diet: Fluid Restriction to 1500cc/ day Nonweightbearing bilateral lower extremities Keep splints and bandages clean and dry Maintain splints and elevate lower extremities Take meds as directed Lab draw in 3 days for BMP Follow-up with Dr. Mata in office Discharge Disposition: TRANSFER TO SNF/ECF
[2017-01-19] MEDS: CHOLECALCIFEROL 1,000 UNIT TAB PO SCH (11:15)
--- NOTE | 2017-01-19 13:58 | PN ---
Patient's hyponatremia is bit worse compared to yesterday. Patient's hyponatremia worsened after IV fluids. Patient may have SIADH related to most probably these reasons once patient is on anticholinergic medication that may have contributed to his SIADH and pain may have contributed to it too. I do not believe patient will need to stay in the hospital for mild hyponatremia. Patient's sodium is 128 at this point of time and since he is going to subacute rehabilitation, basic metabolic profile need to be retested in about 3 days and if he is still hyponatremic worse than today after fluid restriction of 1500 mL per day, patient will need further evaluation with Nephrology or internal medicine evaluation using urine random sodium and urine random creatinine, and TSH early intervention school psychologist cortisol level and urinary random creatinine. Urine osmolarity and sodium osmolarity looking into further causes of hyponatremia, although these lab tests will be abnormal at this point of time, not reflective of actual pathology since patient already received IV fluids. Patient can follow with Nephrology for that. Patient is okay to be discharged from my perspective and hydrochlorothiazide will be discontinued. Patient will be resumed on lisinopril 20 mg. REVIEW OF SYSTEMS: CARDIOVASCULAR: No chest pain, no orthopnea, no PND, no palpitations. PULMONARY: Denied any shortness of breath. No cough or hemoptysis. GASTROINTESTINAL: No diarrhea, nausea or vomiting. No abdominal pain. Normoactive bowel sounds. NEUROLOGIC: No headaches, no weakness, no numbness. Medications were reviewed. PHYSICAL EXAMINATION: VITAL SIGNS: Temperature 97.3, pulse of 70, respiratory rate of 16, blood pressure 180/99. Saturating at 97% on room air. GENERAL: The patient is alert and oriented x3, not in any acute distress. Well developed, well nourished. HEENT: Pupils are round and equally reacting to light. EOMI. No scleral icterus. No conjunctival pallor. Normocephalic, atraumatic. No pharyngeal erythema. No thyromegaly. CARDIOVASCULAR: S1 and S2 present. No murmurs, rubs, or gallops. PULMONARY: Chest is clear to auscultation, no wheezing or crackles. ABDOMEN: Soft, nontender, nondistended, normoactive bowel sounds. No palpable organomegaly. MUSCULOSKELETAL: No joint swelling or deformity. EXTREMITIES: No cyanosis, clubbing, or pedal edema. NEUROLOGICAL: Gross neurological examination did not reveal any focal deficits. SKIN: No rashes. LABORATORY DATA: Significant ones as discussed above. Patient's lungs are clear. I do not believe patient is volume overloaded. ASSESSMENT AND PLAN: 1. hyponatremia, which appears to be euvolemic hyponatremia. May be related to SIADH from above-mentioned reasons. 2. Hypokalemia, resolved after supplementation. 3. Dislocation of the bilateral foot joints. Please refer to orthopedic surgery for further details and management as per them. 4. Hyperlipidemia. 5. Peripheral neuropathy. 6. Gastroesophageal reflux disease. Patient as mentioned above is okay to be discharged from my perspective. Medication reconciliation was reviewed. MTDD
[2017-01-20] MEDS ORDERED: LISINOPRIL 20 MG TAB PO SCH (09:00)
== END 2017-01-19 15:20 | DRG 504 ==
LOC: 2ORWHC 10:17 → 5MS5E 15:05
PROVIDERS: ADMIT Orthopaedic Surgery; ATTEND Orthopaedic Surgery
PROC: 0QSP04Z Reposition Left Metatarsal with Internal Fixation Device, Open Approach (ICD-10-PCS; 2017-01-16)
PROC: 0QSP34Z Reposition Left Metatarsal with Internal Fixation Device, Percutaneous Approach (ICD-10-PCS; 2017-01-16)
PROC: 0QSN04Z Reposition Right Metatarsal with Internal Fixation Device, Open Approach (ICD-10-PCS; principal; 2017-01-16 11:30)
DX: S92.311A Displaced fracture of first metatarsal bone, right foot, initial encounter for closed fracture (principal); E22.2 Syndrome of inappropriate secretion of antidiuretic hormone; E78.5 Hyperlipidemia, unspecified; G62.9 Polyneuropathy, unspecified; I10 Essential (primary) hypertension; S92.322A Displaced fracture of second metatarsal bone, left foot, initial encounter for closed fracture; S92.312A Displaced fracture of first metatarsal bone, left foot, initial encounter for closed fracture; G89.29 Other chronic pain; E87.6 Hypokalemia; R60.9 Edema, unspecified; T50.2X5A Adverse effect of carbonic-anhydrase inhibitors, benzothiadiazides and other diuretics, initial encounter; M19.90 Unspecified osteoarthritis, unspecified site; K21.9 Gastro-esophageal reflux disease without esophagitis; F41.9 Anxiety disorder, unspecified; F32.9 Major depressive disorder, single episode, unspecified; R26.2 Difficulty in walking, not elsewhere classified; M54.5 Low back pain; F12.90 Cannabis use, unspecified, uncomplicated; F41.0 Panic disorder [episodic paroxysmal anxiety]; Z91.81 History of falling; Z87.81 Personal history of (healed) traumatic fracture; Z83.3 Family history of diabetes mellitus; Z82.49 Family history of ischemic heart disease and other diseases of the circulatory system; Z79.899 Other long term (current) drug therapy; Z87.891 Personal history of nicotine dependence; Z90.49 Acquired absence of other specified parts of digestive tract; Z79.82 Long term (current) use of aspirin; Z79.1 Long term (current) use of non-steroidal anti-inflammatories (NSAID); Z79.891 Long term (current) use of opiate analgesic; W19.XXXA Unspecified fall, initial encounter
CPT/HCPCS: 71010; 80048; 80053; 82306; 84132; 85025

== ENCOUNTER → 2018-02-11 | Outpatient (CLI) | payer MEDICARE, BC ==
--- NOTE | 2018-02-11 09:04 | BD ---
EXAMINATION TYPE: Axial Bone Density DATE OF EXAM: 02/11/2018 CLINICAL HISTORY: N858.0 other disorders of bone Height: 63 in Weight: 265 FRAX RISK QUESTIONS: Alcohol (3 or more units per day): no Family History (Parent hip fracture): no Glucocorticoids (More than 3mos): no (Ex: prednisone, prednisolone, methylprednisolone, dexamethasone, and hydrocortisone). History of Fracture in Adulthood: both feet 2017 Secondary Osteoporosis: 1. Type 1 Diabetes: no 2. Hyperthyroidism: no 4. Malnutrition: no 5. Chronic liver disease: no Rheumatoid Arthritis: no Current Tobacco Use: no RISK FACTORS HISTORY OF: History of wrist fracture: yes, but as child Surgery to Spine: yes When: over 10 years Family History of Osteoporosis: unsure Active: somewhat Diet low in dairy products/other sources of calcium: no Lost more than 2 inches in height since high school: no Frequent falls: no Poor Health: no Hyperparathyroidism: no Adrenal Insufficiency: no MEDICATIONS: Prednisone or other steroids: no Thyroid Medications: no Osteoporosis Medications: no Additional Medications: blood pressure meds, heart meds, cholesterol, Vitamin & calcium Additional History: surgical intervention for resolution of extended herniated disc posteriorly L5/S1 ; danna foot surgery EXAM MEASUREMENTS: Bone mineral densitometry was performed using the [employer] System. Bone mineral density as measured about the Lumbar spine is: ----- L1-L4(G/cm2): 1.052 T Score Values are as follows: ----- L2: -1.2 ----- L3: -0.2 ----- L4: -1.4 ----- L1-L4: -1.1 Bone mineral density BASELINE Bone mineral density about the R hip (g/cm2): 0.894 Bone mineral density about the L hip (g/cm2): 0.883 T Score values are as follows: -----R Neck: -1.0 -----L Neck: -1.1 -----R Total: -0.1 -----L Total: -0.2 Bone mineral density BASELINE IMPRESSION: Osteopenia lumbar spine with increased fracture risk. NOTE: T-SCORE=SD OF THE YOUNG ADULT MEAN.
== END | disposition home or self-care (01) ==
LOC: RADBDWWP 08:05
PROVIDERS: ATTEND Family Medicine
DX: M85.88 Other specified disorders of bone density and structure, other site (principal); Z87.311 Personal history of (healed) other pathological fracture
CPT/HCPCS: 77080

== ENCOUNTER → 2018-06-11 | Outpatient (CLI) | payer MEDICARE, BC ==
[2018-06-11 13:49] LABS: Basophils % (A) 0 %; Eosinophils # (A) 0.1 k/uL (0-0.7); Eosinophils % (A) 1 %; HCT 43.4 % (39.0-53.0); HGB 13.9 gm/dL (13.0-17.5); Lymphocytes # (A) 2.1 k/uL (1.0-4.8); Lymphocytes % (A) 31 %; MCH 29.9 pg (25.0-35.0); MCHC 32.1 g/dL (31.0-37.0); MCV 93.1 fL (80.0-100.0); Mean Platelet Volume 6.9; Monocytes # (A) 0.6 k/uL (0-1.0); Monocytes % (A) 9 %; Neutrophils # (A) 3.7 k/uL (1.3-7.7); Neutrophils % (A) 56 %; Platelet Count 230 k/uL (150-450); RBC 4.66 m/uL (4.30-5.90); RDW 13.3 % (11.5-15.5); WBC 6.7 k/uL (3.8-10.6)
[2018-06-11 13:51] LABS: INR 0.9 (<1.2); Partial Thromboplastin Time 24.4 sec (22.0-30.0); Prothrombin Time 9.4 sec (9.0-12.0)
[2018-06-11 19:26] LABS: Albumin 4.3 g/dL (3.80-4.90); Albumin/Globulin Ratio 1.79 (1.20-2.10); Anion Gap 5.8 mmol/L (4.00-12.00); Calcium 8.9 mg/dL (8.7-10.3); Carbon Dioxide 30.2 mmol/L (21.6-31.8); Globulin 2.4 g/dL (2.1-3.7); Potassium 4.5 mmol/L (3.5-5.5); Total Bilirubin 0.2 mg/dL (0.2-1.2); Total Protein 6.7 g/dL (6.2-8.2)
== END | disposition home or self-care (01) ==
LOC: LABWHC1 12:51
PROVIDERS: ATTEND Physician Assistant
DX: Z01.812 Encounter for preprocedural laboratory examination (principal)
CPT/HCPCS: 36415; 80053; 85025; 85610; 85730

== ENCOUNTER → 2021-09-27 | Outpatient (CLI) | payer MEDICARE, BC ==
--- NOTE | 2021-09-27 12:27 | XR ---
EXAMINATION TYPE: XR hand complete RT, XR wrist complete RT DATE OF EXAM: 09/27/2021 CLINICAL HISTORY: pain TECHNIQUE: Frontal, lateral and oblique images of the right hand are obtained. COMPARISON: None. FINDINGS: There is no acute fracture/dislocation evident. The joint spaces appear within normal limi ts. The overlying soft tissue appears unremarkable. IMPRESSION: There is no acute fracture or dislocation ICD 10 NO FRACTURE, INITIAL EVALUATION EXAMINATION TYPE: XR hand complete RT, XR wrist complete RT DATE OF EXAM: 09/27/2021 CLINICAL HISTORY: pain TECHNIQUE: Frontal, lateral and oblique images of the right wrist are obtained. COMPARISON: None. FINDINGS: There is no acute fracture/dislocation evident. The joint spaces appear within normal limits. The o verlying soft tissue appears unremarkable. IMPRESSION: There is no acute fracture or dislocation seen. ICD 10 NO FRACTURE, INITIAL EVALUATION
== END | disposition home or self-care (01) ==
LOC: RADXRMAIN 12:03
PROVIDERS: ATTEND Physical Medicine & Rehabilitation
DX: M25.531 Pain in right wrist (principal); M25.541 Pain in joints of right hand